=== PATIENT | female | born 1950 | race Caucasian/White ===

== ENCOUNTER → 2016-06-24 | Outpatient (CLI) | payer OTHER ==
[~2016-06-24] MED LIST: ALBUTEROL2.5 MG/0.5 INH; ATIVAN1 MG PO; CEFTIN500 MG PO; DUONEB 3 MG/3 ML3 M1 NEB; HYDROCODONE BIT1 T11 PO; LEVAQUIN750 MG PO; MEDROL DOSEPAK4 MG PO; NICOTINE14 MG/24 H TD; PRAVASTATIN SOD20 MG PO; PREDNISONE10 MG PO; PROTONIX40 M1 PO; SYMBICORT1 AE1 IH; SYMBICORT1 AE1 INH; Synthroid,Lev100 MCG PO; Synthroid,Lev150 MCG PO
== END | disposition home or self-care (01) ==
LOC: LAB 02:50 → RESCLI 02:50
DX: J44.9 Chronic obstructive pulmonary disease, unspecified (principal); E03.9 Hypothyroidism, unspecified; G47.00 Insomnia, unspecified; F43.22 Adjustment disorder with anxiety; Z87.891 Personal history of nicotine dependence

== ENCOUNTER → 2016-09-24 | Outpatient (CLI) | payer OTHER ==
[2016-09-24 12:37] LABS: FREE T4 1.39 ng/dl (0.76-1.46)
[2016-09-24 12:41] LABS: THYROID STIM HORMONE (HS) 0.014 uIU/ml (0.358-4.75)
== END | disposition home or self-care (01) ==
LOC: RESCLI 03:32 → LAB 03:32 → RESCLI 08:19
PROVIDERS: Internal Medicine
DX: E03.9 Hypothyroidism, unspecified (principal)

== ENCOUNTER → 2016-12-25 | Outpatient (CLI) | payer OTHER ==
[2016-12-25 11:18] LABS: FREE T4 1.19 ng/dl (0.76-1.46)
[2016-12-25 11:23] LABS: THYROID STIM HORMONE (HS) 0.051 uIU/ml (0.358-4.75)
== END | disposition home or self-care (01) ==
LOC: LAB 01:11 → RESCLI 01:11
PROVIDERS: Internal Medicine
DX: E03.9 Hypothyroidism, unspecified (principal)

== ENCOUNTER → 2017-01-31 | Outpatient (CLI) | payer OTHER | END | disposition home or self-care (01) | LOC: LAB 10:25 | DX: E03.9 Hypothyroidism, unspecified (principal) ==

== ENCOUNTER 2017-02-16 18:49 | Emergency (ER) | payer OTHER ==
[~2017-02-16] VITALS: Ht 165.1 cm; Wt 59.0 kg
[2017-02-16] MEDS ORDERED: AUGMENTIN 875875 MG PO (20:50)
== END 2017-02-16 21:09 | disposition home or self-care (01) ==
LOC: ED 18:49
DX: J01.10 Acute frontal sinusitis, unspecified (principal); J44.9 Chronic obstructive pulmonary disease, unspecified; E78.00 Pure hypercholesterolemia, unspecified; E03.9 Hypothyroidism, unspecified; Z88.2 Allergy status to sulfonamides; Z79.899 Other long term (current) drug therapy

== ENCOUNTER 2017-03-03 11:27 | Inpatient (IN) | payer OTHER ==
[~2017-03-03] VITALS: Ht 165.1 cm; Wt 57.2 kg
--- NOTE | ~2017-03-03 | EKG ---
[place], [place] ELECTROCARDIOGRAM REPORT NAME: DIOGENES REYNOLDS UNIT #: [id number] ROOM: 403 DOCTOR: ALETHA COX,PETER BIRTHDATE: [birth year] DOS: 03/03/2017 TIME: 1151. IMPRESSION: 1. Sinus rhythm. 2. Lateral ST-T changes, ischemia. 3. Baseline artifacts. 4. Possible inferior ischemia. PETER POMPA MD CM:EKGRPT:ELECTROCARDIOGRAM REPORT [id number] PETER POMPA MD
[~2017-03-03 11:27] MED LIST changes: +AUGMENTIN 875875 MG PO
[2017-03-03 11:28] VITALS: BP 125/60
[2017-03-03 11:57] LABS: BASO # 0.1 10*3/uL (0.0-0.1); BASO % 0.4 % (0.0-1.0); EOS # 0.1 10*3/uL (0.0-0.4); EOS % 0.7 % (1.0-4.0); HEMATOCRIT 40.1 % (37.0-47.0); HEMOGLOBIN 13.3 g/dl (12.0-16.0); LYMPH # 1.2 10*3/uL (1.3-4.4); LYMPH % 6.3 % (27.0-41.0); MEAN CELL VOLUME 91.8 fl (81.0-99.0); MEAN CORPUSCULAR HGB 30.4 pg (27.0-31.0); MEAN CORPUSCULAR HGB CONC 33.2 g/dl (33.0-37.0); MEAN PLATELET VOLUME 9.6 fl (9.6-12.3); MONO % 5.2 % (3.0-9.0); NEUT # 16.9 10*3/uL (2.3-7.9); NEUT % 86.8 % (47.0-73.0); PLATELET COUNT AUTOMATED 388 10*3/uL (130-400); RED BLOOD COUNT 4.37 10*6/uL (4.10-5.10); RED CELL DISTRI WIDTH 14.3 % (0-14.5); WHITE BLOOD COUNT 19.4 10*3/uL (4.8-10.8)
[2017-03-03 12:15] LABS: ALBUMIN 3.7 gm/dl (3.1-4.5); ALKALINE PHOSPHATASE 90 U/L (45-117); BUN 9 mg/dl (7-24); CHLORIDE 103 mmol/L (98-107); CREATININE 0.95 mg/dL (0.55-1.02); LIPASE 107 U/L (73-393); SGOT/AST 19 IU/L (3-35); SGPT/ALT 20 U/L (12-78); SODIUM 135 mmol/L (136-145); TOTAL PROTEIN 7.9 gm/dL (6.4-8.2)
[2017-03-03 12:18] VITALS: BP 127/69
[2017-03-03] MEDS ORDERED: Synthroid,Levo50 MCG PO (12:28)
--- NOTE | 2017-03-03 13:06 | NUR ---
1/2NS AND LEVAQUIN INFUSING AT TIME OF ADMISSION.
[2017-03-03] MEDS ORDERED: SYMB160 INH (13:54)
[2017-03-03 16:00] VITALS: BP 112/58
[2017-03-03 20:00] VITALS: BP 107/53
[2017-03-04] VITALS: BP 107/52
[2017-03-04 06:30] LABS: HEMATOCRIT 34.1 % (37.0-47.0); HEMOGLOBIN 11.3 g/dl (12.0-16.0); MEAN CELL VOLUME 91.2 fl (81.0-99.0); MEAN CORPUSCULAR HGB 30.2 pg (27.0-31.0); MEAN CORPUSCULAR HGB CONC 33.1 g/dl (33.0-37.0); MEAN PLATELET VOLUME 9.9 fl (9.6-12.3); PLATELET COUNT AUTOMATED 367 10*3/uL (130-400); RED BLOOD COUNT 3.74 10*6/uL (4.10-5.10); RED CELL DISTRI WIDTH 14.2 % (0-14.5); WHITE BLOOD COUNT 20.1 10*3/uL (4.8-10.8)
[2017-03-04 07:04] LABS: ALBUMIN 2.9 gm/dl (3.1-4.5); ALKALINE PHOSPHATASE 77 U/L (45-117); BUN 12 mg/dl (7-24); CHLORIDE 109 mmol/L (98-107); CHOLESTEROL 163 mg/dL (<200); CREATININE 0.68 mg/dL (0.55-1.02); FREE T4 0.96 ng/dl (0.76-1.46); HDL CHOLESTEROL 72 mg/dl (40-60); LDL CHOLESTEROL 84 mg/dL (9-159); PHOSPHOROUS 2.8 mg/dL (2.5-4.9); POTASSIUM 3.8 mmol/L (3.5-5.1); SGOT/AST 15 IU/L (3-35); SGPT/ALT 16 U/L (12-78); SODIUM 139 mmol/L (136-145); TOTAL PROTEIN 6.7 gm/dL (6.4-8.2); TRIGLYCERIDES 37 mg/dl (<150); VLDL CHOLESTEROL 7 mg/dL (6-40)
[2017-03-04 07:07] LABS: TOTAL CELLS COUNTED 100 #CELLS
[2017-03-04 07:08] LABS: PLATELET SUFFICIENCY NORMAL (NORMAL)
[2017-03-04 07:23] LABS: VITAMIN D, 25-HYDROXY 7.5 ng/mL (30-100)
[2017-03-04 08:00] VITALS: BP 110/51
--- NOTE | 2017-03-04 08:06 | NUR ---
PT SITTING UP IN BED WATCHING TV. NO S AND S OF ACUTE DISTRESS NOTED AT THIS TIME. RESPS EASY AND REGULAR. CALL LIGHT IN REACH.
--- NOTE | 2017-03-04 09:00 | NUR ---
Weighter in to talk to patient. Patient states lives at home with . There are few steps in the home. Physician: myra hickman [facility]acy: [facility] Home health services: none Patient's level of ADLs: INDEPENDENT Patient has working utilities: all working DME: home oxygen, portable tanks and nebulizer, doesn't remember name of company Follow-up physician's appointment after d/c: will be made by hospitalist nurse director upon discharge Does patient want to access PORTAL?: no Discharge plan discussed with patient, patient states she lives at home with her she is independent in adls and ambulation, works and drives, patient states she has home oxygen, but doesn't use it all of the time, tiara stated she would be going back home and denies any home needs. DWIGHT CONNOR
[2017-03-04 12:30] VITALS: BP 118/55
--- NOTE | 2017-03-04 12:46 | NUR ---
PT SITTING UP IN BED. FAMILY AT BEDSIDE. NO DISTRESS NOTED CURRENTLY
[2017-03-04 16:00] VITALS: BP 125/53
--- NOTE | 2017-03-04 19:56 | NUR ---
PATIENT RESTING IN BED WITH NO NEEDS MADE. 2L O2 NC INTACT. DENIES SHORTNESS OF BREATH AT THIS TIME. BED IN LOWEST POSITION, CALL LIGHT IN REACH
[2017-03-04 20:00] VITALS: BP 118/51
[2017-03-05] VITALS: BP 119/61
--- NOTE | 2017-03-05 06:29 | NUR ---
PATIENT SITTING UP IN BED WATCHING TV. NO NEEDS MADE. BED IN LOWEST POSITION, CALL LIGHT IN REACH
--- NOTE | 2017-03-05 07:50 | NUR ---
Shift chart check completed.
[2017-03-05 07:59] VITALS: BP 114/60
--- NOTE | 2017-03-05 09:00 | NUR ---
case management visits with patient, patient denies any home needs
[2017-03-05 11:56] VITALS: BP 122/56
[2017-03-05] MEDS ORDERED: PREDNISONE10 MG PO (12:25)
[2017-03-05] MEDS ORDERED: LEVAQUIN750 M1 PO (12:25)
[2017-03-05] MEDS ORDERED: VITAMIN D50000 UNIT PO (12:25)
--- NOTE | 2017-03-05 13:42 | NUR ---
WENT OVER D/C INSTRUCTIONS WITH PATIENT AND SPOUSE. PATIENT VERBALIZED UNDERSTANDING THAT SCRIPTS WERE SENT TO PHARMACY. REMOVED IV WITH CATHETER INTACT AND BLEEDING CONTROLLED. PATIENT TAKEN TO EXIT VIA WHEELCHAIR. PATIENT IS D/C HOME.
[2017-03-06 15:06] LABS: LEGIONELLA URINARY ANTIGEN Negative (Negative)
== END 2017-03-05 13:42 | disposition home or self-care (01) | DRG 871 ==
LOC: ED 11:27 → EDHOLD 13:03 → 4E 13:03
PROVIDERS: Emergency Medicine; Internal Medicine; ADMIT Internal Medicine
DX: A41.9 Sepsis, unspecified organism (principal); J18.9 Pneumonia, unspecified organism; J96.10 Chronic respiratory failure, unspecified whether with hypoxia or hypercapnia; E44.0 Moderate protein-calorie malnutrition; E87.8 Other disorders of electrolyte and fluid balance, not elsewhere classified; J44.1 Chronic obstructive pulmonary disease with (acute) exacerbation; E83.41 Hypermagnesemia; R07.9 Chest pain, unspecified; E03.9 Hypothyroidism, unspecified; R73.9 Hyperglycemia, unspecified; E55.9 Vitamin D deficiency, unspecified; Z96.612 Presence of left artificial shoulder joint; F41.9 Anxiety disorder, unspecified; E78.00 Pure hypercholesterolemia, unspecified; Z98.51 Tubal ligation status; Z79.899 Other long term (current) drug therapy; Z88.2 Allergy status to sulfonamides; Z99.81 Dependence on supplemental oxygen; Z90.89 Acquired absence of other organs; Z87.891 Personal history of nicotine dependence; Z80.1 Family history of malignant neoplasm of trachea, bronchus and lung; Z84.89 Family history of other specified conditions; Z68.20 Body mass index [BMI] 20.0-20.9, adult

== ENCOUNTER → 2017-03-11 | Outpatient (CLI) | payer OTHER, MEDICARE ==
[~2017-03-11] MED LIST changes: +LEVAQUIN750 M1 PO; +SYMB160 INH; +Synthroid,Levo50 MCG PO; +VITAMIN D50000 UNIT PO
== END | disposition home or self-care (01) ==
LOC: RESCLI 08:44
DX: E03.9 Hypothyroidism, unspecified (principal); J44.1 Chronic obstructive pulmonary disease with (acute) exacerbation; Z96.612 Presence of left artificial shoulder joint

== ENCOUNTER → 2017-03-25 | Outpatient (CLI) | payer OTHER, MEDICARE ==
[2017-03-25 12:20] LABS: BASO # 0.1 10*3/uL (0.0-0.1); BASO % 0.7 % (0.0-1.0); EOS # 0.3 10*3/uL (0.0-0.4); EOS % 4.7 % (1.0-4.0); HEMOGLOBIN 13.3 g/dl (12.0-16.0); LYMPH # 1.6 10*3/uL (1.3-4.4); LYMPH % 24.3 % (27.0-41.0); MEAN CORPUSCULAR HGB 30.2 pg (27.0-31.0); MEAN CORPUSCULAR HGB CONC 32.4 g/dl (33.0-37.0); MEAN PLATELET VOLUME 9.2 fl (9.6-12.3); MONO # 0.6 10*3/uL (0.1-1.0); MONO % 9.2 % (3.0-9.0); NEUT # 4.1 10*3/uL (2.3-7.9); NEUT % 60.8 % (47.0-73.0); PLATELET COUNT AUTOMATED 409 10*3/uL (130-400); RED BLOOD COUNT 4.41 10*6/uL (4.10-5.10); WHITE BLOOD COUNT 6.7 10*3/uL (4.8-10.8)
[2017-03-25 12:49] LABS: ALBUMIN 3.6 gm/dl (3.1-4.5); ALKALINE PHOSPHATASE 75 U/L (45-117); BUN 14 mg/dl (7-24); CHLORIDE 107 mmol/L (98-107); CHOLESTEROL 237 mg/dL (<200); CREATININE 0.96 mg/dL (0.55-1.02); HDL CHOLESTEROL 88 mg/dl (40-60); LDL CHOLESTEROL 138 mg/dL (9-159); POTASSIUM 3.9 mmol/L (3.5-5.1); SGOT/AST 23 IU/L (3-35); SGPT/ALT 29 U/L (12-78); SODIUM 141 mmol/L (136-145); TRIGLYCERIDES 55 mg/dl (<150); VLDL CHOLESTEROL 11 mg/dL (6-40)
[2017-03-25 13:10] LABS: VITAMIN D, 25-HYDROXY 36.6 ng/mL (30-100)
[2017-03-25 13:37] LABS: FREE T4 0.84 ng/dl (0.76-1.46)
== END | disposition home or self-care (01) ==
LOC: LAB 01:32 → RESCLI 01:32
PROVIDERS: Internal Medicine Hospice and Palliative Medicine
DX: J44.9 Chronic obstructive pulmonary disease, unspecified (principal); E03.9 Hypothyroidism, unspecified

== ENCOUNTER → 2017-04-17 | Outpatient (CLI) | payer OTHER, MEDICARE | END | disposition home or self-care (01) | LOC: LAB 09:52 | DX: E03.9 Hypothyroidism, unspecified (principal) ==

== ENCOUNTER → 2017-04-22 | Outpatient (CLI) | payer OTHER, MEDICARE | END | disposition home or self-care (01) | LOC: RESCLI 03:13 | DX: E03.9 Hypothyroidism, unspecified (principal) ==

== ENCOUNTER 2017-08-11 13:08 | Emergency (ER) | payer OTHER, MEDICARE ==
[~2017-08-11] VITALS: Ht 165.1 cm; Wt 59.0 kg
--- NOTE | ~2017-08-11 | EKG ---
[place], [place] ELECTROCARDIOGRAM REPORT NAME: DIOGENES REYNOLDS UNIT #: [id number] ROOM: DOCTOR: FÉLIX RIVAS MD,DEISI BIRTHDATE: [birth year] DOS: 08/11/2017 TIME: 1:31 p.m. Echocardiogram of patient shows normal sinus rhythm. Heart rate 90 beats per minute. Right atrial enlargement was noted. Otherwise normal EKG. DEISI HEARD MD CM:EKGRPT:ELECTROCARDIOGRAM REPORT [id number] DEISI RIVAS MD
[2017-08-11] MEDS ORDERED: CENTRUM SILVER1 EAC1 PO (13:11)
[2017-08-11 13:35] LABS: BASO # 0.1 10*3/uL (0.0-0.1); BASO % 1.3 % (0.0-1.0); EOS # 0.5 10*3/uL (0.0-0.4); EOS % 4.7 % (1.0-4.0); HEMATOCRIT 45.1 % (37.0-47.0); HEMOGLOBIN 14.6 g/dl (12.0-16.0); LYMPH # 2.6 10*3/uL (1.3-4.4); LYMPH % 26.7 % (27.0-41.0); MEAN CELL VOLUME 91.5 fl (81.0-99.0); MEAN CORPUSCULAR HGB 29.6 pg (27.0-31.0); MEAN CORPUSCULAR HGB CONC 32.4 g/dl (33.0-37.0); MEAN PLATELET VOLUME 9.6 fl (9.6-12.3); MONO # 0.7 10*3/uL (0.1-1.0); MONO % 7.2 % (3.0-9.0); NEUT # 5.8 10*3/uL (2.3-7.9); PLATELET COUNT AUTOMATED 435 10*3/uL (130-400); RED BLOOD COUNT 4.93 10*6/uL (4.10-5.10); RED CELL DISTRI WIDTH 13.9 % (0-14.5); WHITE BLOOD COUNT 9.6 10*3/uL (4.8-10.8)
[2017-08-11 13:51] LABS: ALKALINE PHOSPHATASE 69 U/L (45-117); BUN 15 mg/dl (7-24); CHLORIDE 105 mmol/L (98-107); CREATININE 0.88 mg/dL (0.55-1.02); POTASSIUM 4.5 mmol/L (3.5-5.1); SGOT/AST 20 IU/L (3-35); SGPT/ALT 28 U/L (12-78); SODIUM 141 mmol/L (136-145); TOTAL PROTEIN 7.3 gm/dL (6.4-8.2)
[2017-08-11 13:55] LABS: TROPONIN I < 0.015 ng/ml (<0.045)
[2017-08-11] MEDS ORDERED: CLARITIN10 MG PO (14:25)
[2017-08-11] MEDS ORDERED: FLONASE ALLERG9.9 ML NAS (14:25)
[2017-08-11] MEDS ORDERED: PREDNISONE10 MG PO (14:25)
== END 2017-08-11 14:50 | disposition home or self-care (01) ==
LOC: ED 13:08
PROVIDERS: Nurse Practitioner Family
DX: J44.1 Chronic obstructive pulmonary disease with (acute) exacerbation (principal); R03.0 Elevated blood-pressure reading, without diagnosis of hypertension; E78.00 Pure hypercholesterolemia, unspecified; E03.9 Hypothyroidism, unspecified; Z87.891 Personal history of nicotine dependence; Z98.51 Tubal ligation status; Z98.890 Other specified postprocedural states; Z90.89 Acquired absence of other organs; Z79.899 Other long term (current) drug therapy; Z96.612 Presence of left artificial shoulder joint; Z88.2 Allergy status to sulfonamides

== ENCOUNTER → 2018-05-12 | Outpatient (CLI) | payer OTHER, MEDICARE ==
[~2018-05-12] MED LIST changes: +CENTRUM SILVER1 EAC1 PO; +CLARITIN10 MG PO; +FLONASE ALLERG9.9 ML NAS
[2018-05-12 10:55] LABS: FREE T4 0.82 ng/dl (0.76-1.46)
== END | disposition home or self-care (01) ==
LOC: RESCLI 04:26
PROVIDERS: Internal Medicine Nephrology
DX: Z00.00 Encounter for general adult medical examination without abnormal findings (principal); N39.3 Stress incontinence (female) (male); E03.9 Hypothyroidism, unspecified; J44.9 Chronic obstructive pulmonary disease, unspecified; Z79.899 Other long term (current) drug therapy; Z87.891 Personal history of nicotine dependence; Z88.2 Allergy status to sulfonamides

== ENCOUNTER → 2018-09-03 | Outpatient (CLI) | payer OTHER, MEDICARE | END | disposition home or self-care (01) | LOC: RESCLI 01:17 | DX: Z00.00 Encounter for general adult medical examination without abnormal findings (principal); E03.9 Hypothyroidism, unspecified; J44.9 Chronic obstructive pulmonary disease, unspecified; Z87.891 Personal history of nicotine dependence; Z79.899 Other long term (current) drug therapy ==

== ENCOUNTER → 2018-11-26 | Outpatient (CLI) | payer OTHER, MEDICARE ==
[2018-11-26 11:03] LABS: BASO # 0.1 10*3/uL (0.0-0.1); BASO % 1.7 % (0.0-1.0); EOS # 0.4 10*3/uL (0.0-0.4); EOS % 5.2 % (1.0-4.0); HEMATOCRIT 43.1 % (37.0-47.0); HEMOGLOBIN 13.9 g/dl (12.0-16.0); LYMPH # 2.1 10*3/uL (1.3-4.4); LYMPH % 27.8 % (27.0-41.0); MEAN CORPUSCULAR HGB CONC 32.3 g/dl (33.0-37.0); MEAN PLATELET VOLUME 9.9 fl (9.6-12.3); MONO # 0.7 10*3/uL (0.1-1.0); MONO % 9.4 % (3.0-9.0); NEUT # 4.3 10*3/uL (2.3-7.9); NEUT % 55.5 % (47.0-73.0); PLATELET COUNT AUTOMATED 498 10*3/uL (130-400); RED BLOOD COUNT 4.49 10*6/uL (4.10-5.10); RED CELL DISTRI WIDTH 14.5 % (0-14.5); WHITE BLOOD COUNT 7.7 10*3/uL (4.8-10.8)
[2018-11-26 11:34] LABS: ALBUMIN 3.8 gm/dl (3.1-4.5); BUN 15 mg/dl (7-24); CHLORIDE 109 mmol/L (98-107); CHOLESTEROL 173 mg/dL (<200); CREATININE 0.63 mg/dL (0.55-1.02); POTASSIUM 4.2 mmol/L (3.5-5.1); SGOT/AST 16 IU/L (3-35); SGPT/ALT 22 U/L (12-78); SODIUM 142 mmol/L (136-145); TRIGLYCERIDES 112 mg/dl (<150); VLDL CHOLESTEROL 22 mg/dL (6-40)
[2018-11-26 11:44] LABS: ALKALINE PHOSPHATASE 55 U/L (45-117); HDL CHOLESTEROL 68 mg/dl (40-60); LDL CHOLESTEROL 83 mg/dL (9-159)
[2018-11-26 11:57] LABS: FREE T4 0.91 ng/dl (0.76-1.46)
== END | disposition home or self-care (01) ==
LOC: RESCLI 00:52
PROVIDERS: Student in an Organized Health Care Education/Training Program
DX: Z00.00 Encounter for general adult medical examination without abnormal findings (principal); E03.9 Hypothyroidism, unspecified; J44.9 Chronic obstructive pulmonary disease, unspecified; Z79.899 Other long term (current) drug therapy

== ENCOUNTER → 2019-02-23 | Outpatient (CLI) | payer OTHER, MEDICARE ==
[2019-02-23 14:08] LABS: BASO # 0.1 10*3/uL (0.0-0.1); BASO % 1.3 % (0.0-1.0); EOS # 0.4 10*3/uL (0.0-0.4); EOS % 3.3 % (1.0-4.0); HEMATOCRIT 45.7 % (37.0-47.0); HEMOGLOBIN 14.8 g/dl (12.0-16.0); LYMPH # 2.4 10*3/uL (1.3-4.4); LYMPH % 22.2 % (27.0-41.0); MEAN CELL VOLUME 94.8 fl (81.0-99.0); MEAN CORPUSCULAR HGB 30.7 pg (27.0-31.0); MEAN CORPUSCULAR HGB CONC 32.4 g/dl (33.0-37.0); MEAN PLATELET VOLUME 9.6 fl (9.6-12.3); MONO # 0.7 10*3/uL (0.1-1.0); MONO % 6.5 % (3.0-9.0); NEUT # 7.1 10*3/uL (2.3-7.9); NEUT % 66.5 % (47.0-73.0); PLATELET COUNT AUTOMATED 540 10*3/uL (130-400); RED BLOOD COUNT 4.82 10*6/uL (4.10-5.10); RED CELL DISTRI WIDTH 14.2 % (0-14.5); WHITE BLOOD COUNT 10.7 10*3/uL (4.8-10.8)
[2019-02-23 14:24] LABS: BUN 23 mg/dl (7-24); CHLORIDE 108 mmol/L (98-107); CREATININE 0.97 mg/dL (0.55-1.02); SODIUM 140 mmol/L (136-145)
== END | disposition home or self-care (01) ==
LOC: RESCLI 10:16
PROVIDERS: Hospitalist
DX: E55.9 Vitamin D deficiency, unspecified (principal); J44.9 Chronic obstructive pulmonary disease, unspecified; E78.5 Hyperlipidemia, unspecified; N39.3 Stress incontinence (female) (male); J44.1 Chronic obstructive pulmonary disease with (acute) exacerbation; R07.89 Other chest pain; Z79.899 Other long term (current) drug therapy; Z87.891 Personal history of nicotine dependence; Z88.2 Allergy status to sulfonamides

== ENCOUNTER 2019-03-16 14:11 | Emergency (ER) | payer BC, MEDICARE ==
[~2019-03-16] VITALS: Ht 165.1 cm; Wt 56.2 kg
[2019-03-16 15:53] LABS: BASO # 0.1 10*3/uL (0.0-0.1); BASO % 0.6 % (0.0-1.0); EOS # 0.2 10*3/uL (0.0-0.4); EOS % 2.4 % (1.0-4.0); HEMATOCRIT 42.6 % (37.0-47.0); HEMOGLOBIN 13.9 g/dl (12.0-16.0); LYMPH # 1.2 10*3/uL (1.3-4.4); LYMPH % 15.1 % (27.0-41.0); MEAN CELL VOLUME 94.5 fl (81.0-99.0); MEAN CORPUSCULAR HGB 30.8 pg (27.0-31.0); MEAN CORPUSCULAR HGB CONC 32.6 g/dl (33.0-37.0); MEAN PLATELET VOLUME 9.7 fl (9.6-12.3); MONO # 0.7 10*3/uL (0.1-1.0); MONO % 8.6 % (3.0-9.0); NEUT % 72.9 % (47.0-73.0); PLATELET COUNT AUTOMATED 376 10*3/uL (130-400); RED BLOOD COUNT 4.51 10*6/uL (4.10-5.10); RED CELL DISTRI WIDTH 14.6 % (0-14.5); WHITE BLOOD COUNT 8.2 10*3/uL (4.8-10.8)
[2019-03-16 16:00] LABS: ALBUMIN 3.5 gm/dl (3.1-4.5); ALKALINE PHOSPHATASE 53 U/L (45-117); BUN 7 mg/dl (7-24); CHLORIDE 111 mmol/L (98-107); CREATININE 0.67 mg/dL (0.55-1.02); LIPASE 121 U/L (73-393); POTASSIUM 3.3 mmol/L (3.5-5.1); SGOT/AST 26 IU/L (3-35); SGPT/ALT 42 U/L (12-78); SODIUM 141 mmol/L (136-145); TOTAL PROTEIN 6.7 gm/dL (6.4-8.2)
[2019-03-16] MEDS ORDERED: IMODIUM A-D2 M2 PO (16:43)
== END 2019-03-16 17:13 | disposition home or self-care (01) ==
LOC: ED 14:11
PROVIDERS: Emergency Medicine
DX: A08.4 Viral intestinal infection, unspecified (principal); R19.7 Diarrhea, unspecified; J44.9 Chronic obstructive pulmonary disease, unspecified; E03.9 Hypothyroidism, unspecified; Z88.2 Allergy status to sulfonamides; Z79.899 Other long term (current) drug therapy; Z87.891 Personal history of nicotine dependence

== ENCOUNTER → 2019-03-18 | Outpatient (CLI) | payer BC, MEDICARE ==
[~2019-03-18] MED LIST changes: +IMODIUM A-D2 M2 PO
== END | disposition home or self-care (01) ==
LOC: RESCLI 01:33
DX: A08.4 Viral intestinal infection, unspecified (principal); Z12.39 Encounter for other screening for malignant neoplasm of breast; Z53.20 Procedure and treatment not carried out because of patient's decision for unspecified reasons; J44.9 Chronic obstructive pulmonary disease, unspecified; E03.9 Hypothyroidism, unspecified; Z90.89 Acquired absence of other organs

== ENCOUNTER → 2019-03-19 | Outpatient (CLI) | payer BC ==
[2019-03-19 10:00] LABS: BUN 12 mg/dl (7-24); CHLORIDE 112 mmol/L (98-107); CREATININE 0.71 mg/dL (0.55-1.02); POTASSIUM 3.8 mmol/L (3.5-5.1); SODIUM 144 mmol/L (136-145)
[2019-03-19 10:30] LABS: FREE T4 0.63 ng/dl (0.76-1.46)
== END | disposition home or self-care (01) ==
LOC: LAB 07:59
PROVIDERS: Internal Medicine
DX: E03.9 Hypothyroidism, unspecified (principal); A08.4 Viral intestinal infection, unspecified

== ENCOUNTER 2019-04-14 14:36 | Emergency (ER) | payer BC ==
[~2019-04-14] VITALS: Ht 165.1 cm; Wt 55.8 kg
[2019-04-14 15:16] LABS: BASO # 0.1 10*3/uL (0.0-0.1); BASO % 0.8 % (0.0-1.0); EOS # 0.1 10*3/uL (0.0-0.4); EOS % 0.7 % (1.0-4.0); HEMATOCRIT 41.6 % (37.0-47.0); HEMOGLOBIN 13.6 g/dl (12.0-16.0); LYMPH # 1.7 10*3/uL (1.3-4.4); LYMPH % 10.1 % (27.0-41.0); MEAN CELL VOLUME 95.4 fl (81.0-99.0); MEAN CORPUSCULAR HGB 31.2 pg (27.0-31.0); MEAN CORPUSCULAR HGB CONC 32.7 g/dl (33.0-37.0); MEAN PLATELET VOLUME 9.5 fl (9.6-12.3); MONO # 1.3 10*3/uL (0.1-1.0); MONO % 7.4 % (3.0-9.0); NEUT # 13.9 10*3/uL (2.3-7.9); NEUT % 80.7 % (47.0-73.0); PLATELET COUNT AUTOMATED 502 10*3/uL (130-400); RED BLOOD COUNT 4.36 10*6/uL (4.10-5.10); RED CELL DISTRI WIDTH 14.5 % (0-14.5); WHITE BLOOD COUNT 17.2 10*3/uL (4.8-10.8)
[2019-04-14 15:26] LABS: ACT PARTIAL THROMBO TIME 35.1 SECONDS (20.0-32.1)
[2019-04-14 15:33] LABS: BUN 12 mg/dl (7-24); CHLORIDE 105 mmol/L (98-107); CREATININE 0.84 mg/dL (0.55-1.02); POTASSIUM 4.2 mmol/L (3.5-5.1); SGOT/AST 14 IU/L (3-35); SGPT/ALT 24 U/L (12-78); SODIUM 136 mmol/L (136-145); TOTAL PROTEIN 7.8 gm/dL (6.4-8.2)
[2019-04-14 15:36] LABS: ALKALINE PHOSPHATASE 75 U/L (45-117)
[2019-04-14 15:42] LABS: TROPONIN I < 0.015 ng/ml (<0.045)
[2019-04-14] MEDS ORDERED: VIBRAMYCIN100 MG PO (17:32)
== END 2019-04-14 19:05 | disposition home or self-care (01) ==
LOC: ED 14:36
PROVIDERS: Emergency Medicine
DX: J18.9 Pneumonia, unspecified organism (principal); R42 Dizziness and giddiness; M79.606 Pain in leg, unspecified; J44.9 Chronic obstructive pulmonary disease, unspecified; E07.9 Disorder of thyroid, unspecified; Z87.891 Personal history of nicotine dependence; Z88.2 Allergy status to sulfonamides; Z79.899 Other long term (current) drug therapy

== ENCOUNTER → 2019-04-20 | Outpatient (CLI) | payer BC ==
[~2019-04-20] MED LIST changes: +VIBRAMYCIN100 MG PO
[2019-04-20 15:36] LABS: BASO # 0.2 10*3/uL (0.0-0.1); BASO % 1.5 % (0.0-1.0); EOS # 0.6 10*3/uL (0.0-0.4); EOS % 4.6 % (1.0-4.0); HEMATOCRIT 43.9 % (37.0-47.0); LYMPH # 3.3 10*3/uL (1.3-4.4); LYMPH % 26.3 % (27.0-41.0); MEAN CELL VOLUME 96.3 fl (81.0-99.0); MEAN CORPUSCULAR HGB 30.7 pg (27.0-31.0); MEAN CORPUSCULAR HGB CONC 31.9 g/dl (33.0-37.0); MEAN PLATELET VOLUME 9.3 fl (9.6-12.3); MONO # 1.1 10*3/uL (0.1-1.0); MONO % 8.8 % (3.0-9.0); NEUT # 7.1 10*3/uL (2.3-7.9); PLATELET COUNT AUTOMATED 639 10*3/uL (130-400); RED BLOOD COUNT 4.56 10*6/uL (4.10-5.10); RED CELL DISTRI WIDTH 14.4 % (0-14.5); WHITE BLOOD COUNT 12.5 10*3/uL (4.8-10.8)
== END | disposition home or self-care (01) ==
LOC: RESCLI 05:39
PROVIDERS: Internal Medicine
DX: Z12.39 Encounter for other screening for malignant neoplasm of breast (principal); J44.9 Chronic obstructive pulmonary disease, unspecified; J18.9 Pneumonia, unspecified organism; E03.9 Hypothyroidism, unspecified; E55.9 Vitamin D deficiency, unspecified; Z53.20 Procedure and treatment not carried out because of patient's decision for unspecified reasons; Z79.899 Other long term (current) drug therapy; Z90.89 Acquired absence of other organs; Z88.8 Allergy status to other drugs, medicaments and biological substances; Z87.891 Personal history of nicotine dependence

== ENCOUNTER → 2019-07-15 | Outpatient (CLI) | payer BC | END | disposition home or self-care (01) | LOC: LAB 09:07 | DX: E03.9 Hypothyroidism, unspecified (principal) ==

== ENCOUNTER → 2019-12-20 | Outpatient (CLI) | payer BC | END | disposition home or self-care (01) | LOC: RESCLI 06:28 | PROVIDERS: ATTEND Internal Medicine Nephrology | DX: J44.9 Chronic obstructive pulmonary disease, unspecified (principal); E03.9 Hypothyroidism, unspecified; E55.9 Vitamin D deficiency, unspecified; Z12.31 Encounter for screening mammogram for malignant neoplasm of breast; Z53.20 Procedure and treatment not carried out because of patient's decision for unspecified reasons; Z79.899 Other long term (current) drug therapy; Z98.51 Tubal ligation status; Z98.890 Other specified postprocedural states; Z87.891 Personal history of nicotine dependence; Z88.8 Allergy status to other drugs, medicaments and biological substances ==

== ENCOUNTER → 2020-01-03 | Outpatient (CLI) | payer BC, MEDICARE ==
[2020-01-03 12:33] LABS: ALBUMIN 4.1 gm/dl (3.1-4.5); ALKALINE PHOSPHATASE 61 U/L (45-117); BUN 14 mg/dl (7-24); CHLORIDE 111 mmol/L (98-107); CHOLESTEROL 203 mg/dL (<200); CREATININE 0.85 mg/dL (0.55-1.02); HDL CHOLESTEROL 65 mg/dl (40-60); LDL CHOLESTEROL 118 mg/dL (9-159); SGOT/AST 32 IU/L (3-35); SGPT/ALT 30 U/L (12-78); SODIUM 143 mmol/L (136-145); TOTAL PROTEIN 8.1 gm/dL (6.4-8.2); TRIGLYCERIDES 100 mg/dl (<150); VLDL CHOLESTEROL 20 mg/dL (6-40)
[2020-01-03 12:42] LABS: POTASSIUM 4.7 mmol/L (3.5-5.1)
== END | disposition home or self-care (01) ==
LOC: LAB 11:26
PROVIDERS: ATTEND Internal Medicine
DX: E55.9 Vitamin D deficiency, unspecified (principal); E03.9 Hypothyroidism, unspecified; J44.9 Chronic obstructive pulmonary disease, unspecified

== ENCOUNTER 2020-06-05 18:24 | Inpatient (IN) | payer BC, MEDICARE ==
[~2020-06-05] VITALS: Ht 165.1 cm; Wt 59.0 kg
[2020-06-05 18:36] VITALS: BP 153/70
[2020-06-05 19:22] LABS: BASO # 0.2 10*3/uL (0.0-0.1); BASO % 1.5 % (0.0-1.0); EOS # 0.7 10*3/uL (0.0-0.4); EOS % 4.6 % (1.0-4.0); LYMPH # 2.2 10*3/uL (1.3-4.4); LYMPH % 14.4 % (27.0-41.0); MEAN CELL VOLUME 90.9 fl (81.0-99.0); MEAN CORPUSCULAR HGB 29.8 pg (27.0-31.0); MEAN CORPUSCULAR HGB CONC 32.7 g/dl (33.0-37.0); MEAN PLATELET VOLUME 9.4 fl (9.6-12.3); MONO % 6.4 % (3.0-9.0); NEUT # 10.8 10*3/uL (2.3-7.9); NEUT % 72.6 % (47.0-73.0); PLATELET COUNT AUTOMATED 690 10*3/uL (130-400); RED BLOOD COUNT 4.84 10*6/uL (4.10-5.10); RED CELL DISTRI WIDTH 14.1 % (0-14.5); WHITE BLOOD COUNT 14.9 10*3/uL (4.8-10.8)
[2020-06-05 19:39] LABS: ALBUMIN 3.8 gm/dl (3.1-4.5); ALKALINE PHOSPHATASE 67 U/L (45-117); BUN 13 mg/dl (7-24); CHLORIDE 109 mmol/L (98-107); CREATININE 0.95 mg/dL (0.55-1.02); POTASSIUM 3.6 mmol/L (3.5-5.1); SGOT/AST 19 IU/L (3-35); SGPT/ALT 23 U/L (12-78); SODIUM 140 mmol/L (136-145); TOTAL PROTEIN 7.3 gm/dL (6.4-8.2)
[2020-06-05 20:09] VITALS: BP 142/73
[2020-06-05 21:10] VITALS: BP 124/64
[2020-06-05 22:02] VITALS: BP 135/72
[2020-06-05 22:50] VITALS: BP 137/70
[2020-06-05] MEDS ORDERED: LEVOTHYROXINE75 MCG PO (23:26)
[2020-06-05] MEDS ORDERED: Ipratropium Brom3 ML INH (23:29)
[2020-06-05] MEDS ORDERED: BREO ELLIPTA 21 EACH INH (23:29)
[2020-06-05] MEDS ORDERED: PROAIR HFA8.5 GM INH (23:30)
[2020-06-06 06:43] LABS: ACT PARTIAL THROMBO TIME 31.2 SECONDS (20.0-32.1); INTERNATIONAL NORM RATIO 1.1 (2.0-3.5)
[2020-06-06 06:47] LABS: BASO # 0.2 10*3/uL (0.0-0.1); BASO % 1.7 % (0.0-1.0); EOS # 0.6 10*3/uL (0.0-0.4); EOS % 6.3 % (1.0-4.0); HEMATOCRIT 38.8 % (37.0-47.0); LYMPH # 2.2 10*3/uL (1.3-4.4); MEAN CELL VOLUME 93.7 fl (81.0-99.0); MEAN CORPUSCULAR HGB 29.7 pg (27.0-31.0); MEAN CORPUSCULAR HGB CONC 31.7 g/dl (33.0-37.0); MEAN PLATELET VOLUME 9.5 fl (9.6-12.3); MONO # 0.8 10*3/uL (0.1-1.0); MONO % 7.9 % (3.0-9.0); NEUT # 6.2 10*3/uL (2.3-7.9); NEUT % 61.8 % (47.0-73.0); PLATELET COUNT AUTOMATED 526 10*3/uL (130-400); RED BLOOD COUNT 4.14 10*6/uL (4.10-5.10); RED CELL DISTRI WIDTH 14.1 % (0-14.5)
[2020-06-06 07:08] LABS: ALBUMIN 2.7 gm/dl (3.1-4.5); BUN 8 mg/dl (7-24); CHLORIDE 115 mmol/L (98-107); CHOLESTEROL 138 mg/dL (<200); CREATININE 0.72 mg/dL (0.55-1.02); POTASSIUM 3.8 mmol/L (3.5-5.1); SGOT/AST 14 IU/L (3-35); SGPT/ALT 14 U/L (12-78); SODIUM 143 mmol/L (136-145); TRIGLYCERIDES 86 mg/dl (<150); VLDL CHOLESTEROL 17 mg/dL (6-40)
[2020-06-06 07:16] LABS: ALKALINE PHOSPHATASE 48 U/L (45-117); FREE T4 0.98 ng/dl (0.76-1.46); HDL CHOLESTEROL 39 mg/dl (40-60); LDL CHOLESTEROL 82 mg/dL (9-159); TOTAL PROTEIN 5.3 gm/dL (6.4-8.2)
[2020-06-06 08:00] VITALS: BP 138/70
[2020-06-06 08:25] VITALS: BP 140/68
[2020-06-06 12:00] VITALS: BP 127/57; BP 128/59
[2020-06-06 16:00] VITALS: BP 123/53
[2020-06-06 20:00] VITALS: BP 158/61
[2020-06-07] VITALS: BP 159/70
[2020-06-07 06:34] LABS: BASO # 0.2 10*3/uL (0.0-0.1); BASO % 1.7 % (0.0-1.0); EOS # 0.7 10*3/uL (0.0-0.4); EOS % 7.2 % (1.0-4.0); HEMATOCRIT 42.6 % (37.0-47.0); LYMPH # 2.2 10*3/uL (1.3-4.4); LYMPH % 21.2 % (27.0-41.0); MEAN CELL VOLUME 93.6 fl (81.0-99.0); MEAN CORPUSCULAR HGB 29.7 pg (27.0-31.0); MEAN CORPUSCULAR HGB CONC 31.7 g/dl (33.0-37.0); MEAN PLATELET VOLUME 9.8 fl (9.6-12.3); MONO # 0.9 10*3/uL (0.1-1.0); MONO % 8.6 % (3.0-9.0); NEUT # 6.2 10*3/uL (2.3-7.9); NEUT % 60.9 % (47.0-73.0); PLATELET COUNT AUTOMATED 570 10*3/uL (130-400); RED BLOOD COUNT 4.55 10*6/uL (4.10-5.10); RED CELL DISTRI WIDTH 14.2 % (0-14.5); WHITE BLOOD COUNT 10.2 10*3/uL (4.8-10.8)
[2020-06-07 07:08] LABS: BUN 12 mg/dl (7-24); CHLORIDE 110 mmol/L (98-107); CREATININE 0.86 mg/dL (0.55-1.02); SODIUM 140 mmol/L (136-145)
[2020-06-07 08:00] VITALS: BP 126/63
[2020-06-07] MEDS ORDERED: ZITHROMAX250 MG PO (12:07)
== END 2020-06-07 12:40 | disposition home or self-care (01) | DRG 871 ==
LOC: ED 18:24 → EDHOLD 20:11 → 5E 20:11
PROVIDERS: Internal Medicine; Social Worker Clinical; ADMIT Internal Medicine; ATTEND Internal Medicine
DX: A41.9 Sepsis, unspecified organism (principal); J18.9 Pneumonia, unspecified organism; N17.9 Acute kidney failure, unspecified; J44.0 Chronic obstructive pulmonary disease with (acute) lower respiratory infection; E44.1 Mild protein-calorie malnutrition; R65.20 Severe sepsis without septic shock; D47.3 Essential (hemorrhagic) thrombocythemia; E03.9 Hypothyroidism, unspecified; E87.8 Other disorders of electrolyte and fluid balance, not elsewhere classified; R73.9 Hyperglycemia, unspecified; E83.41 Hypermagnesemia; R53.83 Other fatigue; Z96.612 Presence of left artificial shoulder joint; Z88.2 Allergy status to sulfonamides; Z87.891 Personal history of nicotine dependence; Z80.1 Family history of malignant neoplasm of trachea, bronchus and lung; Z79.899 Other long term (current) drug therapy; Z79.890 Hormone replacement therapy; Z68.21 Body mass index [BMI] 21.0-21.9, adult

== ENCOUNTER → 2020-06-12 | Outpatient (CLI) | payer BC, MEDICARE ==
[~2020-06-12] MED LIST changes: +BREO ELLIPTA 21 EACH INH; +Ipratropium Brom3 ML INH; +LEVOTHYROXINE75 MCG PO; +PROAIR HFA8.5 GM INH; +ZITHROMAX250 MG PO
== END | disposition home or self-care (01) ==
LOC: RESCLI 02:37
PROVIDERS: ATTEND Internal Medicine Nephrology
DX: J44.9 Chronic obstructive pulmonary disease, unspecified (principal); E03.9 Hypothyroidism, unspecified; E55.9 Vitamin D deficiency, unspecified; Z12.39 Encounter for other screening for malignant neoplasm of breast; Z53.20 Procedure and treatment not carried out because of patient's decision for unspecified reasons; Z09 Encounter for follow-up examination after completed treatment for conditions other than malignant neoplasm; Z79.899 Other long term (current) drug therapy; Z98.51 Tubal ligation status; Z98.890 Other specified postprocedural states; Z85.828 Personal history of other malignant neoplasm of skin; Z88.8 Allergy status to other drugs, medicaments and biological substances

== ENCOUNTER → 2020-06-20 | Outpatient (CLI) | payer BC | END | disposition home or self-care (01) | LOC: CT 10:33 | PROVIDERS: ATTEND Internal Medicine Critical Care Medicine | DX: J43.9 Emphysema, unspecified (principal); J92.9 Pleural plaque without asbestos; J47.9 Bronchiectasis, uncomplicated ==

== ENCOUNTER → 2020-10-31 | Outpatient (CLI) | payer BC ==
[2020-10-31 16:32] LABS: BILIRUBIN Negative (Negative); BLOOD Negative (Negative); CLARITY Clear (Clear); COLOR Yellow (Yellow); GLUCOSE Negative (Negative); KETONE Negative (Negative); LEUKO ESTERASE Negative (Negative); NITRITE Negative (Negative); UROBILINOGEN 0.2 E.U./dl (0.0-1.0)
[2020-10-31 16:47] LABS: BACTERIA TRACE; EPITHELIAL CELLS 0-2; RBC 0-2 rbc/hpf (0-2); WBC 0-2 wbc/hpf (0-5)
== END | disposition home or self-care (01) ==
LOC: RESCLI 01:10
PROVIDERS: Internal Medicine; ATTEND Internal Medicine
DX: N39.3 Stress incontinence (female) (male) (principal); I10 Essential (primary) hypertension; Z00.00 Encounter for general adult medical examination without abnormal findings; E03.9 Hypothyroidism, unspecified; J44.9 Chronic obstructive pulmonary disease, unspecified; Z79.899 Other long term (current) drug therapy; Z88.8 Allergy status to other drugs, medicaments and biological substances; Z87.891 Personal history of nicotine dependence; Z98.890 Other specified postprocedural states

== ENCOUNTER → 2020-11-27 | Outpatient (CLI) | payer BC | END | disposition home or self-care (01) | LOC: MAMMO 07:30 | PROVIDERS: ATTEND Nurse Practitioner Women's Health | DX: Z12.31 Encounter for screening mammogram for malignant neoplasm of breast (principal) ==

== ENCOUNTER → 2020-12-11 | Outpatient (CLI) | payer BC ==
[2020-12-11 16:08] LABS: BASO # 0.2 10*3/uL (0.0-0.1); BASO % 2.1 % (0.0-1.0); EOS # 0.4 10*3/uL (0.0-0.4); EOS % 3.1 % (1.0-4.0); HEMATOCRIT 49.4 % (37.0-47.0); LYMPH # 2.5 10*3/uL (1.3-4.4); LYMPH % 21.4 % (27.0-41.0); MEAN CELL VOLUME 90.1 fl (81.0-99.0); MEAN CORPUSCULAR HGB 28.8 pg (27.0-31.0); MEAN PLATELET VOLUME 9.1 fl (9.6-12.3); MONO # 0.9 10*3/uL (0.1-1.0); MONO % 7.4 % (3.0-9.0); NEUT # 7.5 10*3/uL (2.3-7.9); NEUT % 65.6 % (47.0-73.0); PLATELET COUNT AUTOMATED 747 10*3/uL (130-400); RED BLOOD COUNT 5.48 10*6/uL (4.10-5.10); RED CELL DISTRI WIDTH 14.8 % (0-14.5); WHITE BLOOD COUNT 11.5 10*3/uL (4.8-10.8)
[2020-12-11 16:25] LABS: BUN 17 mg/dl (7-24); CHLORIDE 104 mmol/L (98-107); CREATININE 0.98 mg/dL (0.55-1.02); POTASSIUM 4.1 mmol/L (3.5-5.1); SODIUM 138 mmol/L (136-145)
== END | disposition home or self-care (01) ==
LOC: RESCLI 06:44
PROVIDERS: Internal Medicine; ATTEND Internal Medicine Nephrology
DX: J44.9 Chronic obstructive pulmonary disease, unspecified (principal); E03.9 Hypothyroidism, unspecified; E55.9 Vitamin D deficiency, unspecified; I10 Essential (primary) hypertension; N39.3 Stress incontinence (female) (male); R92.8 Other abnormal and inconclusive findings on diagnostic imaging of breast; R87.610 Atypical squamous cells of undetermined significance on cytologic smear of cervix (ASC-US); Z88.2 Allergy status to sulfonamides; Z98.890 Other specified postprocedural states; Z79.899 Other long term (current) drug therapy

== ENCOUNTER → 2020-12-21 | Outpatient (CLI) | payer BC | END | disposition home or self-care (01) | LOC: MAMMO 00:08 | PROVIDERS: ATTEND Nurse Practitioner Women's Health | DX: R92.8 Other abnormal and inconclusive findings on diagnostic imaging of breast (principal); N63.0 Unspecified lump in unspecified breast ==

== ENCOUNTER → 2021-01-25 | Outpatient (CLI) | payer BC | END | disposition home or self-care (01) | LOC: COVID19 15:14 | PROVIDERS: ATTEND Internal Medicine | DX: U07.1 COVID-19 (principal) ==

== ENCOUNTER → 2021-06-25 | Outpatient (CLI) | payer BC ==
[2021-06-25 15:34] LABS: BASO # 0.2 10*3/uL (0.0-0.1); BASO % 1.9 % (0.0-1.0); EOS # 0.5 10*3/uL (0.0-0.4); EOS % 4.4 % (1.0-4.0); HEMATOCRIT 47.6 % (37.0-47.0); LYMPH # 2.1 10*3/uL (1.3-4.4); LYMPH % 17.9 % (27.0-41.0); MEAN CELL VOLUME 90.8 fl (81.0-99.0); MEAN CORPUSCULAR HGB 29.4 pg (27.0-31.0); MEAN CORPUSCULAR HGB CONC 32.4 g/dl (33.0-37.0); MEAN PLATELET VOLUME 9.3 fl (9.6-12.3); MONO # 0.8 10*3/uL (0.1-1.0); MONO % 6.8 % (3.0-9.0); NEUT # 8.1 10*3/uL (2.3-7.9); NEUT % 68.6 % (47.0-73.0); PLATELET COUNT AUTOMATED 627 10*3/uL (130-400); RED BLOOD COUNT 5.24 10*6/uL (4.10-5.10); RED CELL DISTRI WIDTH 13.4 % (0-14.5); WHITE BLOOD COUNT 11.7 10*3/uL (4.8-10.8)
[2021-06-25 15:50] LABS: ALKALINE PHOSPHATASE 62 U/L (45-117); BUN 13 mg/dl (7-24); CHLORIDE 109 mmol/L (98-107); CREATININE 0.96 mg/dL (0.55-1.02); POTASSIUM 4.8 mmol/L (3.5-5.1); SGOT/AST 24 IU/L (3-35); SGPT/ALT 32 U/L (12-78); SODIUM 138 mmol/L (136-145); TOTAL PROTEIN 7.6 gm/dL (6.4-8.2)
== END | disposition home or self-care (01) ==
LOC: RESCLI 01:02
PROVIDERS: Internal Medicine; ATTEND Internal Medicine Nephrology
DX: E03.9 Hypothyroidism, unspecified (principal); J44.9 Chronic obstructive pulmonary disease, unspecified; I10 Essential (primary) hypertension; R42 Dizziness and giddiness; J30.2 Other seasonal allergic rhinitis; Z88.8 Allergy status to other drugs, medicaments and biological substances; Z79.899 Other long term (current) drug therapy

== ENCOUNTER → 2021-07-03 | Outpatient (CLI) | payer BC | END | disposition home or self-care (01) | LOC: RESCLI 01:46 | PROVIDERS: ATTEND Internal Medicine Nephrology | DX: R00.2 Palpitations (principal); E03.9 Hypothyroidism, unspecified; J44.9 Chronic obstructive pulmonary disease, unspecified; I10 Essential (primary) hypertension; Z79.899 Other long term (current) drug therapy; Z88.8 Allergy status to other drugs, medicaments and biological substances ==

== ENCOUNTER → 2021-09-03 | Outpatient (CLI) | payer BC | END | disposition home or self-care (01) | LOC: CARD 09:22 | PROVIDERS: ATTEND Internal Medicine Cardiovascular Disease | DX: I08.0 Rheumatic disorders of both mitral and aortic valves (principal) ==

== ENCOUNTER → 2021-11-13 | Outpatient (CLI) | payer BC | END | disposition home or self-care (01) | LOC: RESCLI 03:40 | PROVIDERS: ATTEND Internal Medicine | DX: E03.9 Hypothyroidism, unspecified (principal); I10 Essential (primary) hypertension; J44.9 Chronic obstructive pulmonary disease, unspecified; Z79.899 Other long term (current) drug therapy; Z88.8 Allergy status to other drugs, medicaments and biological substances ==

== ENCOUNTER → 2022-01-29 | Outpatient (CLI) | payer BC | END | disposition home or self-care (01) | LOC: RESCLI 14:57 | PROVIDERS: ATTEND Internal Medicine | DX: J44.9 Chronic obstructive pulmonary disease, unspecified (principal); E03.9 Hypothyroidism, unspecified; I10 Essential (primary) hypertension; Z00.00 Encounter for general adult medical examination without abnormal findings; Z88.8 Allergy status to other drugs, medicaments and biological substances; Z79.899 Other long term (current) drug therapy; Z87.891 Personal history of nicotine dependence ==

== ENCOUNTER → 2022-02-01 | Outpatient (CLI) | payer BC, MEDICARE | END | disposition home or self-care (01) | LOC: RAD 09:16 | PROVIDERS: ATTEND Internal Medicine | DX: M85.9 Disorder of bone density and structure, unspecified (principal); Z79.899 Other long term (current) drug therapy; Z78.0 Asymptomatic menopausal state ==

== ENCOUNTER → 2022-04-16 | Outpatient (CLI) | payer BC, MEDICARE ==
[~2022-04-16] MED LIST changes: +AMLODIPINE BESYL5 MG PO; +ASPIRIN ADULT L81 M2 PO; +LISINOPRIL10 M1 PO; +LISINOPRIL20 MG PO; +METOPROLOL SUCC50 M1 PO; +TRELEGY ELLIPT1 EAC1 INH
[2022-04-16 10:54] LABS: BASO # 0.3 10*3/uL (0.0-0.1); BASO % 1.9 % (0.0-1.0); EOS # 0.9 10*3/uL (0.0-0.4); EOS % 5.1 % (1.0-4.0); HEMATOCRIT 54.6 % (37.0-47.0); LYMPH % 16.8 % (27.0-41.0); MEAN CELL VOLUME 89.1 fl (81.0-99.0); MEAN CORPUSCULAR HGB 28.1 pg (27.0-31.0); MEAN CORPUSCULAR HGB CONC 31.5 g/dl (33.0-37.0); MEAN PLATELET VOLUME 9.7 fl (9.6-12.3); MONO # 1.2 10*3/uL (0.1-1.0); MONO % 6.9 % (3.0-9.0); NEUT # 12.1 10*3/uL (2.3-7.9); NEUT % 68.5 % (47.0-73.0); PLATELET COUNT AUTOMATED 884 10*3/uL (130-400); RED BLOOD COUNT 6.13 10*6/uL (4.10-5.10); RED CELL DISTRI WIDTH 16.8 % (0-14.5); RETICULOCYTE % 1.94 % (0.50-2.50); WHITE BLOOD COUNT 17.6 10*3/uL (4.8-10.8)
[2022-04-16 11:10] LABS: POTASSIUM 5.1 mmol/L (3.4-5.1)
== END | disposition home or self-care (01) ==
LOC: LAB 10:27
PROVIDERS: Internal Medicine; ATTEND Internal Medicine
DX: D75.1 Secondary polycythemia (principal); N17.0 Acute kidney failure with tubular necrosis

== ENCOUNTER → 2022-04-22 | Outpatient (CLI) | payer BC, MEDICARE ==
[2022-04-22 08:47] LABS: HEMATOCRIT 53.6 % (37.0-47.0); MEAN CELL VOLUME 89.5 fl (81.0-99.0); MEAN CORPUSCULAR HGB 27.9 pg (27.0-31.0); MEAN CORPUSCULAR HGB CONC 31.2 g/dl (33.0-37.0); MEAN PLATELET VOLUME 9.7 fl (9.6-12.3); RED BLOOD COUNT 5.99 10*6/uL (4.10-5.10); RED CELL DISTRI WIDTH 15.8 % (0-14.5); WHITE BLOOD COUNT 16.2 10*3/uL (4.8-10.8)
[2022-04-22 08:51] LABS: MANUAL DIFF REFLEX YES
[2022-04-22 08:52] LABS: PLATELET COUNT AUTOMATED 1256 10*3/uL (130-400)
[2022-04-22 09:11] LABS: ATYPICAL LYMPHS 1 % (0-0); BASOPHILS 3 % (0-1); TOTAL CELLS COUNTED 100 #CELLS
[2022-04-22 09:12] LABS: PLATELET SUFFICIENCY HIGH (NORMAL); POLYCHROMASIA SLIGHT; VACUOLATION OF NEUTROPHILS SLIGHT
== END | disposition home or self-care (01) ==
LOC: LAB 08:14
PROVIDERS: ATTEND Internal Medicine
DX: N17.0 Acute kidney failure with tubular necrosis (principal); D75.1 Secondary polycythemia

== ENCOUNTER → 2022-05-06 | Outpatient (CLI) | payer BC, MEDICARE | END | disposition home or self-care (01) | LOC: RESCLI 01:20 | PROVIDERS: ATTEND Internal Medicine | DX: I10 Essential (primary) hypertension (principal); J44.9 Chronic obstructive pulmonary disease, unspecified; E03.9 Hypothyroidism, unspecified; Z88.2 Allergy status to sulfonamides; Z98.890 Other specified postprocedural states; Z79.82 Long term (current) use of aspirin; Z79.899 Other long term (current) drug therapy ==

== ENCOUNTER → 2022-07-29 | Outpatient (CLI) | payer BC, MEDICARE | END | disposition home or self-care (01) | LOC: RESCLI 01:10 | PROVIDERS: ATTEND Internal Medicine | DX: I10 Essential (primary) hypertension (principal); D45 Polycythemia vera; J44.9 Chronic obstructive pulmonary disease, unspecified; E03.9 Hypothyroidism, unspecified; E78.5 Hyperlipidemia, unspecified; M85.80 Other specified disorders of bone density and structure, unspecified site; Z88.2 Allergy status to sulfonamides; Z98.890 Other specified postprocedural states; Z79.82 Long term (current) use of aspirin; Z79.899 Other long term (current) drug therapy ==

== ENCOUNTER 2022-09-14 15:18 | Emergency (ER) | payer BC, MEDICARE ==
[~2022-09-14] VITALS: Ht 165.1 cm; Wt 67.1 kg
[2022-09-14] MEDS ORDERED: DILTIAZEM 24HR120 M1 PO (15:31)
[2022-09-14] MEDS ORDERED: ATORVASTATIN CA20 M1 PO (15:31)
[2022-09-14] MEDS ORDERED: HYDROXYUREA500 MG PO (15:32)
[2022-09-14] MEDS ORDERED: LISINOPRIL10 M1 PO (15:32)
[2022-09-14] MEDS ORDERED: CARVEDILOL3.125 MG PO (15:33)
[2022-09-14 15:53] LABS: BASO % 0.2 % (0.0-1.0); EOS # 0.1 10*3/uL (0.0-0.4); EOS % 1.4 % (1.0-4.0); HEMATOCRIT 29.2 % (37.0-47.0); LYMPH # 1.6 10*3/uL (1.3-4.4); LYMPH % 27.1 % (27.0-41.0); MEAN CELL VOLUME 101.4 fl (81.0-99.0); MEAN CORPUSCULAR HGB 34.7 pg (27.0-31.0); MEAN CORPUSCULAR HGB CONC 34.2 g/dl (33.0-37.0); MEAN PLATELET VOLUME 8.8 fl (9.6-12.3); MONO # 0.5 10*3/uL (0.1-1.0); MONO % 8.2 % (3.0-9.0); NEUT # 3.6 10*3/uL (2.3-7.9); NEUT % 62.6 % (47.0-73.0); PLATELET COUNT AUTOMATED 165 10*3/uL (130-400); RED BLOOD COUNT 2.88 10*6/uL (4.10-5.10); RED CELL DISTRI WIDTH 25.8 % (0-14.5); WHITE BLOOD COUNT 5.8 10*3/uL (4.8-10.8)
[2022-09-14 16:04] LABS: ACT PARTIAL THROMBO TIME 32.3 SECONDS (20.0-32.1); INTERNATIONAL NORM RATIO 1.1 (2.0-3.5)
[2022-09-14 16:18] LABS: POTASSIUM 4.3 mmol/L (3.4-5.1); TOTAL PROTEIN 7.1 gm/dL (6.0-8.0)
[2022-09-14] MEDS ORDERED: MOTION SICKNESS25 M5 PO (17:53)
== END 2022-09-14 18:05 | disposition home or self-care (01) ==
LOC: ED 15:18
PROVIDERS: Internal Medicine
DX: E86.0 Dehydration (principal); N17.9 Acute kidney failure, unspecified; J44.9 Chronic obstructive pulmonary disease, unspecified; Z88.2 Allergy status to sulfonamides; Z90.89 Acquired absence of other organs; Z98.51 Tubal ligation status; Z98.890 Other specified postprocedural states; Z87.891 Personal history of nicotine dependence

== ENCOUNTER → 2022-10-14 | Outpatient (CLI) | payer BC, MEDICARE ==
[~2022-10-14] MED LIST changes: +ATORVASTATIN CA20 M1 PO; +CARVEDILOL3.125 MG PO; +DILTIAZEM 24HR120 M1 PO; +HYDROXYUREA500 MG PO; +MOTION SICKNESS25 M5 PO
== END | disposition home or self-care (01) ==
LOC: RESCLI 01:47
PROVIDERS: ATTEND Internal Medicine
DX: D45 Polycythemia vera (principal); J44.9 Chronic obstructive pulmonary disease, unspecified; I10 Essential (primary) hypertension; E03.9 Hypothyroidism, unspecified; E78.5 Hyperlipidemia, unspecified; M85.80 Other specified disorders of bone density and structure, unspecified site; D53.9 Nutritional anemia, unspecified; Z88.2 Allergy status to sulfonamides; Z88.8 Allergy status to other drugs, medicaments and biological substances; Z98.890 Other specified postprocedural states; Z87.891 Personal history of nicotine dependence; Z79.899 Other long term (current) drug therapy

== ENCOUNTER → 2023-04-14 | Outpatient (CLI) | payer BC, MEDICARE ==
[2023-04-14 11:03] LABS: FREE T4 1.41 ng/dl (0.89-1.76)
== END | disposition home or self-care (01) ==
LOC: RESCLI 02:49
PROVIDERS: Student in an Organized Health Care Education/Training Program; ATTEND Student in an Organized Health Care Education/Training Program
DX: J44.9 Chronic obstructive pulmonary disease, unspecified (principal); E03.9 Hypothyroidism, unspecified; I10 Essential (primary) hypertension; E78.5 Hyperlipidemia, unspecified; D45 Polycythemia vera; M85.80 Other specified disorders of bone density and structure, unspecified site; Z79.82 Long term (current) use of aspirin; Z87.891 Personal history of nicotine dependence; Z79.899 Other long term (current) drug therapy; Z88.8 Allergy status to other drugs, medicaments and biological substances

== ENCOUNTER → 2023-04-21 | Outpatient (CLI) | payer BC, MEDICARE | END | disposition home or self-care (01) | LOC: RESCLI 02:03 | PROVIDERS: ATTEND Family Medicine | DX: H26.9 Unspecified cataract (principal); D45 Polycythemia vera; J44.9 Chronic obstructive pulmonary disease, unspecified; M85.80 Other specified disorders of bone density and structure, unspecified site; I10 Essential (primary) hypertension; E78.5 Hyperlipidemia, unspecified; E03.9 Hypothyroidism, unspecified; Z88.2 Allergy status to sulfonamides; Z87.891 Personal history of nicotine dependence; Z79.82 Long term (current) use of aspirin; Z79.899 Other long term (current) drug therapy ==

== ENCOUNTER → 2023-07-14 | Outpatient (CLI) | payer BC, MEDICARE | END | disposition home or self-care (01) | LOC: RESCLI 00:21 | PROVIDERS: ATTEND Internal Medicine | DX: I10 Essential (primary) hypertension (principal); D45 Polycythemia vera; J44.9 Chronic obstructive pulmonary disease, unspecified; M85.80 Other specified disorders of bone density and structure, unspecified site; E78.5 Hyperlipidemia, unspecified; R09.89 Other specified symptoms and signs involving the circulatory and respiratory systems; E03.9 Hypothyroidism, unspecified; Z79.899 Other long term (current) drug therapy; Z88.8 Allergy status to other drugs, medicaments and biological substances; Z98.890 Other specified postprocedural states ==

== ENCOUNTER → 2023-10-13 | Outpatient (CLI) | payer BC, MEDICARE ==
[2023-10-13 11:51] LABS: POTASSIUM 4.3 mmol/L (3.4-5.1)
[2023-10-13 17:54] LABS: BILIRUBIN Negative (Negative); BLOOD Negative (Negative); CLARITY Clear (Clear); COLOR Yellow (Yellow); GLUCOSE Negative (Negative); KETONE Negative (Negative); LEUKO ESTERASE Negative (Negative); NITRITE Negative (Negative); PH 5.5 (4.5-8.0); UROBILINOGEN 0.2 E.U./dl (0.0-1.0)
[2023-10-13 18:04] LABS: URINE CREATININE RANDOM 143.39 mg/dL
[2023-10-13 18:45] LABS: BACTERIA 1+; EPITHELIAL CELLS 0-2; HYALINE CAST 0-2; WBC 0-2 wbc/hpf (0-5)
== END | disposition home or self-care (01) ==
LOC: RESCLI 02:17
PROVIDERS: Student in an Organized Health Care Education/Training Program; ATTEND Student in an Organized Health Care Education/Training Program
DX: I12.9 Hypertensive chronic kidney disease with stage 1 through stage 4 chronic kidney disease, or unspecified chronic kidney disease (principal); N18.9 Chronic kidney disease, unspecified; D45 Polycythemia vera; J44.9 Chronic obstructive pulmonary disease, unspecified; M85.80 Other specified disorders of bone density and structure, unspecified site; E03.9 Hypothyroidism, unspecified; N28.1 Cyst of kidney, acquired; E78.5 Hyperlipidemia, unspecified; Z87.891 Personal history of nicotine dependence; Z88.2 Allergy status to sulfonamides; Z98.890 Other specified postprocedural states; Z79.899 Other long term (current) drug therapy

== ENCOUNTER → 2023-12-29 | Outpatient (CLI) | payer BC, MEDICARE ==
[2023-12-29 10:56] LABS: HEMATOCRIT 37.1 % (37.0-47.0); MEAN CELL VOLUME 111.4 fl (81.0-99.0); MEAN CORPUSCULAR HGB 36.6 pg (27.0-31.0); MEAN CORPUSCULAR HGB CONC 32.9 g/dl (33.0-37.0); MEAN PLATELET VOLUME 9.3 fl (9.6-12.3); PLATELET COUNT AUTOMATED 365 10*3/uL (130-400); RED BLOOD COUNT 3.33 10*6/uL (4.10-5.10); RED CELL DISTRI WIDTH 12.3 % (0-14.5); WHITE BLOOD COUNT 10.8 10*3/uL (4.8-10.8)
[2023-12-29 11:08] LABS: MANUAL DIFF REFLEX YES
[2023-12-29 12:22] LABS: PLATELET SUFFICIENCY NORMAL (NORMAL); TOTAL CELLS COUNTED 100 #CELLS
== END | disposition home or self-care (01) ==
LOC: LAB 10:34
PROVIDERS: ATTEND Internal Medicine Hematology & Oncology
DX: D47.3 Essential (hemorrhagic) thrombocythemia (principal)

== ENCOUNTER → 2024-01-12 | Outpatient (CLI) | payer BC, MEDICARE ==
[2024-01-12 11:30] LABS: POTASSIUM 3.9 mmol/L (3.4-5.1); TOTAL PROTEIN 7.5 gm/dL (6.0-8.0)
[2024-01-12 12:07] LABS: FREE T4 1.48 ng/dl (0.89-1.76)
== END | disposition home or self-care (01) ==
LOC: RESCLI 01-09 02:18
PROVIDERS: Student in an Organized Health Care Education/Training Program; ATTEND Internal Medicine
DX: R53.83 Other fatigue (principal); I10 Essential (primary) hypertension; D75.89 Other specified diseases of blood and blood-forming organs; M85.80 Other specified disorders of bone density and structure, unspecified site; D45 Polycythemia vera; J44.9 Chronic obstructive pulmonary disease, unspecified; E78.5 Hyperlipidemia, unspecified; E03.9 Hypothyroidism, unspecified; Z79.899 Other long term (current) drug therapy; Z79.82 Long term (current) use of aspirin; Z88.2 Allergy status to sulfonamides

== ENCOUNTER → 2024-04-30 | Outpatient (CLI) | payer BC, MEDICARE | END | disposition home or self-care (01) | LOC: RAD 09:44 | PROVIDERS: ATTEND Family Medicine | DX: M81.0 Age-related osteoporosis without current pathological fracture (principal); M85.80 Other specified disorders of bone density and structure, unspecified site ==

== ENCOUNTER → 2024-07-08 | Outpatient (CLI) | payer BC, MEDICARE ==
[2024-07-08 11:37] LABS: HEMATOCRIT 39.1 % (37.0-47.0); MANUAL DIFF REFLEX YES; MEAN CELL VOLUME 109.2 fl (81.0-99.0); MEAN CORPUSCULAR HGB 35.2 pg (27.0-31.0); MEAN CORPUSCULAR HGB CONC 32.2 g/dl (33.0-37.0); MEAN PLATELET VOLUME 9.2 fl (9.6-12.3); PLATELET COUNT AUTOMATED 345 10*3/uL (130-400); RED BLOOD COUNT 3.58 10*6/uL (4.10-5.10); WHITE BLOOD COUNT 7.3 10*3/uL (4.8-10.8)
[2024-07-08 11:56] LABS: CHOLESTEROL 169 mg/dL (<200); LDL CHOLESTEROL 90 mg/dL (9-159); TRIGLYCERIDES 121 mg/dl (<150)
[2024-07-08 12:02] LABS: BASOPHILS 1 % (0-1); PLATELET SUFFICIENCY NORMAL (NORMAL); POLYCHROMASIA SLIGHT; TOTAL CELLS COUNTED 100 #CELLS
== END | disposition home or self-care (01) ==
LOC: LAB 11:13
PROVIDERS: Internal Medicine Hematology & Oncology; ATTEND Internal Medicine Cardiovascular Disease
DX: E78.00 Pure hypercholesterolemia, unspecified (principal); D47.3 Essential (hemorrhagic) thrombocythemia

== ENCOUNTER → 2024-07-12 | Outpatient (CLI) | payer BC, MEDICARE ==
[2024-07-12 11:57] LABS: FREE T4 1.29 ng/dl (0.89-1.76); POTASSIUM 4.5 mmol/L (3.4-5.1); TOTAL PROTEIN 7.3 gm/dL (6.0-8.0)
[2024-07-12 12:04] LABS: VITAMIN D, 25-HYDROXY 110.9 ng/mL (30-100)
== END | disposition home or self-care (01) ==
LOC: LAB 03:11 → RESCLI 03:11
PROVIDERS: Student in an Organized Health Care Education/Training Program; ATTEND Internal Medicine
DX: E03.9 Hypothyroidism, unspecified (principal); M81.0 Age-related osteoporosis without current pathological fracture

== ENCOUNTER → 2024-07-15 | Outpatient (CLI) | payer BC, MEDICARE | END | disposition home or self-care (01) | LOC: LAB 09:48 | PROVIDERS: ATTEND Internal Medicine | DX: E03.9 Hypothyroidism, unspecified (principal); M81.0 Age-related osteoporosis without current pathological fracture ==

== ENCOUNTER → 2024-08-27 | Outpatient (CLI) | payer BC, MEDICARE ==
[2024-08-27 14:48] LABS: BASO # 0.1 10*3/uL (0.0-0.1); BASO % 1.2 % (0.0-1.0); EOS # 0.3 10*3/uL (0.0-0.4); EOS % 3.1 % (1.0-4.0); MEAN CORPUSCULAR HGB 35.5 pg (27.0-31.0); MEAN CORPUSCULAR HGB CONC 32.8 g/dl (33.0-37.0); MEAN PLATELET VOLUME 9.2 fl (9.6-12.3); MONO # 0.9 10*3/uL (0.1-1.0); MONO % 8.9 % (3.0-9.0); NEUT # 5.7 10*3/uL (2.3-7.9); NEUT % 57.2 % (47.0-73.0); PLATELET COUNT AUTOMATED 440 10*3/uL (130-400); RED BLOOD COUNT 3.61 10*6/uL (4.10-5.10); RED CELL DISTRI WIDTH 13.5 % (0-14.5)
[2024-08-27 15:16] LABS: POTASSIUM 4.8 mmol/L (3.4-5.1); TOTAL PROTEIN 7.1 gm/dL (6.0-8.0)
== END | disposition home or self-care (01) ==
LOC: LAB 14:15 → US 14:30
PROVIDERS: ATTEND Urology
DX: N28.1 Cyst of kidney, acquired (principal); N39.41 Urge incontinence

== ENCOUNTER → 2024-08-28 | Outpatient (CLI) | payer BC, MEDICARE ==
[2024-08-28 09:45] LABS: BILIRUBIN Negative (Negative); BLOOD Negative (Negative); CLARITY Clear (Clear); COLOR Yellow (Yellow); GLUCOSE Negative (Negative); KETONE Negative (Negative); LEUKO ESTERASE Negative (Negative); NITRITE Negative (Negative); PH 5.5 (4.5-8.0); UROBILINOGEN 0.2 E.U./dl (0.0-1.0)
== END | disposition home or self-care (01) ==
LOC: LAB 09:29
PROVIDERS: ATTEND Urology
DX: N39.41 Urge incontinence (principal)

== ENCOUNTER → 2025-01-11 | Outpatient (CLI) | payer BC, MEDICARE ==
[2025-01-11 10:23] LABS: BUN 23.0 mg/dl (9-23); FREE T4 1.62 ng/dl (0.89-1.76); SGPT/ALT 23.0 U/L (5-49)
== END | disposition home or self-care (01) ==
LOC: RESCLI 03:24
PROVIDERS: ATTEND Internal Medicine
DX: J44.9 Chronic obstructive pulmonary disease, unspecified (principal); D45 Polycythemia vera; E78.5 Hyperlipidemia, unspecified; I10 Essential (primary) hypertension; E03.9 Hypothyroidism, unspecified; M81.0 Age-related osteoporosis without current pathological fracture; Z79.82 Long term (current) use of aspirin; Z79.899 Other long term (current) drug therapy